=== PATIENT | female | born 2000 | race Caucasian/White ===

== ENCOUNTER → 2023-01-04 | Outpatient (CLI) | payer BC, SELFPAY ==
--- NOTE | 2023-01-04 08:04 | ECHOD_ITS ---
Reason For Study: AORTIC REGURG Procedure This was a 2D Doppler, Color Flow transthoracic echocardiogram. Exam performed in department. Left Ventricle Normal LV size. The estimated ejection fraction is 60 %. No evidence for diastolic dysfunction. No regional wall motion abnormalities noted. Right Ventricle Normal RV size. Normal systolic function. Atria Normal left atrium. Normal right atrium. No doppler evidence for ASD. Mitral Valve There is no mitral valve stenosis. No mitral valve insufficiency. Tricuspid Valve There is no tricuspid stenosis. Mild tricuspid valve insufficiency. Unable to estimate RV systolic pressure due to insufficient tricuspid regurgitant envelope. Aortic Valve Trisinus/trileaflet aortic valve. Velocity across the aortic valve is mildly increased. No aortic valve insufficiency. Pulmonic Valve There is no pulmonic valvular stenosis. No pulmonic valve insufficiency. Great Vessels Normal aortic root. Pericardium/Pleural No pericardial effusion. MMode/2D Measurements & Calculations LVIDd: 4.6 cm IVSd: 0.92 cm Ao root diam: 3.0 cm LVIDs: 3.9 cm LVPWd: 1.0 cm FS: 15.8 % LAV(MOD-bp): 40.0 ml LVAd ap4: 22.6 cm2 SV(MOD-sp4): 31.6 ml LAV(MOD-bp) Indexed: 20.1 ml/m2 LVLd ap4: 7.9 cm LAV(MOD-sp2): 46.8 ml EDV(MOD-sp4): 54.2 ml LAV(MOD-sp4): 34.0 ml EDV(sp4-el): 55.0 ml LVAs ap4: 13.1 cm2 LVLs ap4: 6.7 cm ESV(MOD-sp4): 22.5 ml ESV(sp4-el): 21.8 ml EF(MOD-sp4): 58.4 % EF(sp4-el): 60.3 % SV(sp4-el): 33.2 ml LA A4 area: 15.9 cm2 LA dimension(2D): 3.9 cm RA A4 area: 16.3 cm2 Time Measurements MV dec time: 0.18 sec Doppler Measurements & Calculations MV E max conrado: 77.2 cm/sec Lat Peak E' Conrado: 17.4 cm/sec Med Peak E' Conrado: 10.6 cm/sec MV A max conrado: 45.5 cm/sec E/E' lat: 4.4 E/E' med: 7.3 MV E/A: 1.7 MV V2 max: 80.4 cm/sec Ao V2 max: 225.6 cm/sec MV max P.6 mmHg MV dec slope: 434.0 cm/sec2 Ao max P.4 mmHg MV V2 mean: 48.3 cm/sec Ao V2 mean: 161.5 cm/sec MV mean P.1 mmHg Ao mean P.9 mmHg MV V2 VTI: 24.0 cm Ao V2 VTI: 52.6 cm AV (velocity ratio): 0.65 LV V1 max: 147.2 cm/sec PA V2 max: 95.4 cm/sec TR max conrado: 251.2 cm/sec LV V1 max P.7 mmHg PA V2 mean: 73.9 cm/sec TR max P.2 mmHg LV V1 mean P.4 mmHg LV V1 mean: 109.8 cm/sec LV V1 VTI: 34.4 cm ECHO/Echo Complete Interpretation Summary The estimated ejection fraction is 60 %. No evidence for diastolic dysfunction. Velocity across the aortic valve is mildly increased Ordering Physician: Shima Matias Referring Physician: SHIMA MATIAS Performed By: Delmy Bustillos RCS
== END | disposition home or self-care (01) ==
PROVIDERS: PCP Family Medicine; Visit Provider Family Medicine
DX: I35.1 Nonrheumatic aortic (valve) insufficiency (principal); R00.2 Palpitations
CPT/HCPCS: 93225; 93226; 93306